=== PATIENT | female | born 1995 | race Two or more races ===

== ENCOUNTER 2021-04-22 01:23 | Emergency (ER) | payer OTHER ==
[~2021-04-22] VITALS: Ht 154.9 cm; Wt 59.0 kg
[2021-04-22 01:58] VITALS: BP 135/87
--- NOTE | 2021-04-22 02:06 | NUR ---
Patient discharged to home in stable condition. Written and verbal after care instructions given. Patient verbalizes understanding of instruction.
== END 2021-04-22 02:15 | disposition home or self-care (01) ==
LOC: ER 01:26
DX: Z02.89 Encounter for other administrative examinations (principal); Z60.2 Problems related to living alone